=== PATIENT | female | born 1975 | race African-American/Black ===

== ENCOUNTER 2021-08-29 09:28 | Emergency (ER) | payer OTHER, SELFPAY ==
[2021-08-29 09:45] VITALS: BP 127/94; PULSE 73; RESP 20; TEMP 36.2; O2SAT 98; BMI 25.7
--- NOTE | 2021-08-29 10:51 | PC.NURSE ---
PT LEFT WITHOUT BEING SEEN. PT WAS IN ROOM [facility] AND WHEN PROVIDER WENT INTO SEE PATIENT, PATIENT WAS GONE.
== END 2021-08-29 10:52 | disposition left against medical advice (07) ==
PROVIDERS: Emergency Provider Emergency Medicine
DX: R21 Rash and other nonspecific skin eruption (principal)
CPT/HCPCS: 99281